=== PATIENT | male | born 1975 | race Two or more races ===

== ENCOUNTER 2022-07-13 04:21 | Day surgery (SDC) | payer OTHER ==
[2022-07-11 16:06] VITALS: BMI 34.4
[2022-07-13] MEDS ORDERED: ACETAMINOPHEN 1000 MG/100 ML BAG IVPB ONE (14:20)
[2022-07-13] MEDS ORDERED: DEXTROSE 5%-0.45% SALINE 1,000 ML IV SCH (14:30)
[2022-07-13] MEDS ORDERED: IBUPROFEN 800 MG/8 ML IJ IVPB SCH (14:30)
[2022-07-13] MEDS ORDERED: MIDAZOLAM HCL 2 MG/2 ML SINGLE DOSE VIAL ONE (14:58)
[2022-07-13] MEDS ORDERED: PROPOFOL 20 ML ONE (14:58)
[2022-07-13] MEDS ORDERED: SODIUM CHLORIDE 0.9% P/F 10 ML VIAL IJ ONE (15:00)
[2022-07-13] MEDS ORDERED: GLYCOPYRROLATE 0.2 MG/1 ML VIAL ONE (15:00)
[2022-07-13] MEDS ORDERED: LIDOCAINE HCL/PF 2% SDV 5ML VIAL ONE (15:00)
[2022-07-13] MEDS ORDERED: KETOROLAC TROMETHAMINE 30 MG/1 ML VIAL ONE (15:25)
[2022-07-13] MEDS ORDERED: ONDANSETRON 4 MG/2 ML VIAL ONE (15:25)
[2022-07-13] MEDS ORDERED: DEXAMETHASONE SOD PHOSPHATE 4 MG/1 ML VIAL ONE (15:25)
[2022-07-13] MEDS ORDERED: IOHEXOL 300 MG/ML INFUS..BTL IV ONE (15:30)
[2022-07-13 17:56] VITALS: TEMP 97.2
[2022-07-13] MEDS ORDERED: oxyCODONE HCL 5 MG TABLET ONE ×2 (17:58→18:00)
[2022-07-13] MEDS ORDERED: oxyCODONE HCL 5 MG TABLET PO ONE ×2 (18:05→18:30)
[2022-07-13 19:04] VITALS: BP 137/80; PULSE 58; RESP 20
== END 2022-07-13 19:20 | disposition home or self-care (01) ==
LOC: JASU-SURG 04:21
PROVIDERS: ATTEND Urology
PROC: 0TC18ZZ Extirpation of Matter from Left Kidney, Via Natural or Artificial Opening Endoscopic (ICD-10-PCS; principal; 2022-07-13 15:00)
PROC: 0TC08ZZ Extirpation of Matter from Right Kidney, Via Natural or Artificial Opening Endoscopic (ICD-10-PCS; 2022-07-13 15:00)
PROC: 0T788DZ Dilation of Bilateral Ureters with Intraluminal Device, Via Natural or Artificial Opening Endoscopic (ICD-10-PCS; 2022-07-13 15:00)
DX: N20.2 Calculus of kidney with calculus of ureter (principal)
CPT/HCPCS: 76000-TC-FY; 94760; C1758; C2617